=== PATIENT | male | born 1980 | race African-American/Black ===

== ENCOUNTER 2017-02-23 15:23 | Emergency (ER) | payer SELFPAY ==
--- NOTE | 2017-02-23 15:35 | ER Document Report ---
ED Medical Screen (RME) - General Stated Complaint: POSSIBLE SPIDER BITE Notes: Patient had red area to the left side of abdomen which he treated himself about 5 weeks ago. Now has another area to right side of abdomen that is red and draining. Patient denies fever. I have greeted and performed a rapid initial assessment of this patient. A comprehensive ED assessment and evaluation of the patient, analysis of test results and completion of the medical decision making process will be conducted by additional ED providers. Physical Exam - Vital signs Vitals: Temp Pulse Resp BP Pulse Ox 99.2 F 87 20 157/81 H 98 02/23/17 15:30 02/23/17 15:30 02/23/17 15:30 02/23/17 15:30 02/23/17 15:30 - Skin Notes: Purulent drainage noted from wound to right side of abdomen. Course - Vital Signs Vital signs: Temp Pulse Resp BP Pulse Ox 99.2 F 87 20 157/81 H 98 02/23/17 15:30 02/23/17 15:30 02/23/17 15:30 02/23/17 15:30 02/23/17 15:30
--- NOTE | 2017-02-23 17:57 | ER Document Report ---
ED General - General Chief Complaint: Abscess Stated Complaint: POSSIBLE SPIDER BITE Mode of Arrival: Ambulatory Information source: Patient Cannot obtain history due to: Uncooperative Notes: 36-year-old male presents with complaints of right abdominal abscess of now 1 week duration. Patient notes he had a similar abscess about 3 weeks ago on the left abdomen. Denies any fevers or chills nausea vomiting or diarrhea TRAVEL OUTSIDE OF THE [place] IN LAST 30 DAYS: No - HPI Onset: Last week Onset/Duration: Persistent Quality of pain: Achy Severity: Mild Pain Level: 1 Associated symptoms: None Exacerbated by: Denies Relieved by: Denies Similar symptoms previously: Yes Recently seen / treated by doctor: No - Related Data Allergies/Adverse Reactions: aspirin Allergy (Verified 02/23/17 15:35) swelling Past Medical History - Social History Smoking Status: Never Smoker Cigarette use (# per day): No Chew tobacco use (# tins/day): No Smoking Education Provided: No Frequency of alcohol use: None Drug Abuse: None Family History: Reviewed & Not Pertinent Patient has suicidal ideation: No Patient has homicidal ideation: No Renal/ Medical History: Denies: Hx Peritoneal Dialysis Surgical Hx: Negative Review of Systems - Review of Systems Notes: REVIEW OF SYSTEMS: CONSTITUTIONAL : Denies fever, chills, or sweats. Denies recent illness. EENT: Denies eye, ear, throat, or mouth pain or symptoms. Denies nasal or sinus congestion or discharge. Denies throat, tongue, or mouth swelling or difficulty swallowing. CARDIOVASCULAR: Denies chest pain. Denies palpitations or racing or irregular heart beat. Denies ankle edema. RESPIRATORY: Denies cough, cold, or chest congestion. Denies shortness of breath, difficulty breathing, or wheezing. GASTROINTESTINAL: Denies abdominal pain or distention. Denies nausea, vomiting , or diarrhea. Denies blood in vomitus, stools, or per rectum. Denies black, tarry stools. Denies constipation. GENITOURINARY: Denies difficulty urinating, painful urination, burning, frequency, blood in urine, or discharge. MUSCULOSKELETAL: Denies back or neck pain or stiffness. Denies joint pain or swelling. SKIN: Admits to abscess HEMATOLOGIC : Denies easy bruising or bleeding. LYMPHATIC: Denies swollen, enlarged glands. NEUROLOGICAL: Denies confusion or altered mental status. Denies passing out or loss of consciousness. Denies dizziness or lightheadedness. Denies headache. Denies weakness or paralysis or loss of use of either side. Denies problems with gait or speech. Denies sensory loss, numbness, or tingling. Denies seizures. PSYCHIATRIC: Denies anxiety or stress. Denies depression, suicidal ideation, or homicidal ideation. ALL OTHER SYSTEMS REVIEWED AND NEGATIVE. Dictation was performed using [employer] voice recognition software PHYSICAL EXAMINATION: GENERAL: Well-appearing, well-nourished and in no acute distress. HEAD: Atraumatic, normocephalic. EYES: Pupils equal round and reactive to light, extraocular movements intact, sclera anicteric, conjunctiva are normal. ENT: Nares patent, oropharynx clear without exudates. Moist mucous membranes. NECK: Normal range of motion, supple without lymphadenopathy LUNGS: Breath sounds clear to auscultation bilaterally and equal. No wheezes rales or rhonchi. HEART: Regular rate and rhythm without murmurs ABDOMEN: Soft, nontender, nondistended abdomen. No guarding, no rebound. No masses appreciated. Musculoskeletal: Normal range of motion, no pitting or edema. No cyanosis. NEUROLOGICAL: Cranial nerves grossly intact. Normal speech, normal gait. Normal sensory, motor exams PSYCH: Normal mood, normal affect. SKIN:8x4 centimeters abscess drainage with fluctuance Physical Exam - Vital signs Vitals: Temp Pulse Resp BP Pulse Ox 99.2 F 87 20 157/81 H 98 02/23/17 15:30 02/23/17 15:30 02/23/17 15:30 02/23/17 15:30 02/23/17 15:30 Course - Re-evaluation Re-evalutation: 02/23/17 17:57 Dr Bello will evaluate patient 02/23/17 19:11 Area was incised and drained large amount pus was removed. Area was packed. Patient will be started on antibiotics given pain control with 48 hour recheck After performing a Medical Screening Examination, I estimate there is LOW risk for OPEN FRACTURE, COMPARTMENT SYNDROME, TENDON RUPTURE, ACUTE NEUROVASCULAR INJURY, or RETAINED FOREIGN BODY, thus I consider the discharge disposition reasonable. Also, there is no evidence or peritonitis, sepsis, or toxicity. The patient and I have discussed the diagnosis and risks, and we agree with discharging home with close follow-up with the understanding that symptoms and presentations can change. We also discussed returning to the Emergency Department immediately if new or worsening symptoms occur. We have discussed the symptoms which are most concerning (e.g., changing or worsening pain, fever , numbness, weakness, cool or painful digits) that necessitate immediate return. - Vital Signs Vital signs: Temp Pulse Resp BP Pulse Ox 99.2 F 87 20 157/81 H 98 02/23/17 15:30 02/23/17 15:30 02/23/17 15:30 02/23/17 15:30 02/23/17 15:30 Procedures - Incision and Drainage Right Upper Abdomen Time completed: 19:10 Type: Complex, Single Anesthetic type: 1% Lidocaine mL's of anesthetic: 15 Blade size: 11 I&D procedure: Shurclens applied, Sterile dressing applied Incision Method: Incision made by scalpel Amount/type of drainage: large amount of thick white pus Discharge - Discharge Clinical Impression: Abscess, abdomen Condition: Stable Disposition: HOME, SELF-CARE Instructions: Abscess ([facility]), Post Incision and Drainage Additional Instructions: Return in 48 hours for recheck. Return immediately if there is any sign of worsening infection Prescriptions: Clindamycin HCl 300 mg PO Q6 #40 capsule Oxycodone HCl/Acetaminophen [Percocet 5-325 mg Tablet] 1 tab PO ASDIR PRN #15 tab PRN Reason: Forms: Elevated Blood Pressure
[2017-02-23] MEDS ORDERED: LIDOCAINE 1% INJ-PF (10 MG/ML) 30 ML SDV INJ ONE (18:33)
[2017-02-23 19:31] VITALS: BP 145/88
== END 2017-02-23 19:29 | disposition home or self-care (01) ==
LOC: ER 15:23
PROC: 0H97XZZ Drainage of Abdomen Skin, External Approach (ICD-10-PCS; principal; 2017-02-23)
DX: L02.211 Cutaneous abscess of abdominal wall (principal); Z88.6 Allergy status to analgesic agent
CPT/HCPCS: 87070; 87075; 87077; 87186; 87205; 99283

== ENCOUNTER 2017-02-25 19:26 | Emergency (ER) | payer SELFPAY ==
[2017-02-25 19:35] VITALS: BP 139/84
--- NOTE | 2017-02-25 20:26 | ER Document Report ---
ED Suture/Wound Recheck - General Chief Complaint: Abscess Recheck Stated Complaint: 48HR CHECK UP Time seen by provider: 20:23 Mode of Arrival: Ambulatory Information source: Patient Notes: 36-year-old male presents to ED for recheck of abscess on his abdomen. Patient was seen on Sunday had an I&D done to an abdominal abscess that was packed with gauze. Patient states he has been tolerating the abscess well. He has antibiotics and narcotics left that he can take when he goes home. TRAVEL OUTSIDE OF THE [place] IN LAST 30 DAYS: No - HPI Previous ED treatment: I&D of abscess Antibiotics given previously: Prescription Quality of pain: Achy Severity: Mild Pain Level: 1 Symptoms since procedure: Drainage Exacerbated by: Denies Relieved by: Denies - Related Data Allergies/Adverse Reactions: aspirin Allergy (Verified 02/25/17 19:31) swelling Past Medical History - General Information source: Patient - Social History Smoking Status: Never Smoker Cigarette use (# per day): No Chew tobacco use (# tins/day): No Smoking Education Provided: No Frequency of alcohol use: None Drug Abuse: None Family History: Reviewed & Not Pertinent Patient has suicidal ideation: No Patient has homicidal ideation: No - Past Medical History Cardiac Medical History: Reports: None Pulmonary Medical History: Reports: None EENT Medical History: Reports: None Neurological Medical History: Reports: None Endocrine Medical History: Reports: None Renal/ Medical History: Reports: None Malignancy Medical History: Reports None GI Medical History: Reports: None Musculoskeltal Medical History: Reports None Skin Medical History: Reports Hx Cellulitis - Abdominal abscess Psychiatric Medical History: Reports: None Traumatic Medical History: Reports: None Infectious Medical History: Reports: None Surgical Hx: Negative Past Surgical History: Reports: None - Immunizations Immunizations up to date: Yes Hx Diphtheria, Pertussis, Tetanus Vaccination: Yes Review of Systems - Review of Systems Constitutional: No symptoms reported EENT: No symptoms reported Cardiovascular: No symptoms reported Respiratory: No symptoms reported Gastrointestinal: Other - (Draining wound on the abdomen Genitourinary: No symptoms reported Male Genitourinary: No symptoms reported Musculoskeletal: No symptoms reported Skin: Other - Abscess that has been I&D and is now a open wound on the abdomen Hematologic/Lymphatic: No symptoms reported Neurological/Psychological: No symptoms reported -: Yes All other systems reviewed and negative Physical Exam - Vital signs Vitals: Temp Pulse Resp BP Pulse Ox 98.4 F 77 18 139/84 H 97 02/25/17 19:32 02/25/17 19:32 02/25/17 19:32 02/25/17 19:32 02/25/17 19:32 Interpretation: Normal - General General appearance: Appears well, Alert - HEENT Head: Normocephalic, Atraumatic Eyes: Normal Pupils: PERRL - Respiratory Respiratory status: No respiratory distress Chest status: Nontender Breath sounds: Normal Chest palpation: Normal - Cardiovascular Rhythm: Regular Heart sounds: Normal auscultation Murmur: No - Abdominal Inspection: Normal, Wounds - Open wound that was I&D'd on Sunday and packed. Distension: No distension Bowel sounds: Normal Tenderness: Nontender Organomegaly: No organomegaly - Back Back: Normal, Nontender - Extremities General upper extremity: Normal inspection, Nontender, Normal color, Normal ROM , Normal temperature General lower extremity: Normal inspection, Nontender, Normal color, Normal ROM , Normal temperature, Normal weight bearing. No: Nilam's sign - Neurological Neuro grossly intact: Yes Cognition: Normal Orientation: AAOx4 [place] Coma Scale Eye Opening: Spontaneous [place] Coma Scale Verbal: Oriented [place] Coma Scale Motor: Obeys Commands [place] Coma Scale Total: 15 Speech: Normal Motor strength normal: LUE, RUE, LLE, RLE Sensory: Normal - Psychological Associated symptoms: Normal affect, Normal mood - Skin Skin Temperature: Warm Skin Moisture: Dry Skin Color: Normal Skin irregularity: Abscess - Open wound that was I&D'd on Sunday and packed. Course - Re-evaluation Re-evalutation: 02/25/17 20:35 Open wound that was I&D'd on Sunday and packed. Packing was removed. The opening is still rather large to just put a dressing on it. Site was repacked with quarter inch iodoform and covered with a clean dressing. Patient instructed to return in 48 hours to have site rechecked and possibly repacked. Patient has antibiotics and pain medicine at home from his previous visit and states he does not need any more. - Vital Signs Vital signs: Temp Pulse Resp BP Pulse Ox 98.4 F 77 18 139/84 H 97 02/25/17 19:32 02/25/17 19:32 02/25/17 19:32 02/25/17 19:32 02/25/17 19:32 Discharge - Discharge Clinical Impression: Abscess re-check Condition: Stable Disposition: HOME, SELF-CARE Additional Instructions: ABSCESS: You have an abscess (boil). This a pus-forming infection, usually due to staph. Some boils may be left to drain on their own, but most require lancing. From the time the tender lump first appears, it may be three or four days before the abscess is ready to ninfa. Local heat and rest help at this stage of treatment. An antibiotic may prevent spread of the infection. Once the abscess is opened, packing may be placed into it. This is done so pus is not sealed inside by premature closure of the cavity. The packing will be removed at your follow-up visit or you may be advised to remove it yourself at home. Sometimes this packing must be replaced a few times during healing. The wound will heal with surprisingly little scar. Depending on the size and location of an abscess, healing can take one to four weeks. You may shower and wash the area around the incision site two or three times a day. Antibiotics may be prescribed, but are usually not necessary after an abscess has been drained. If you develop fever, chills, worsening pain, or increasing swelling in the area, call the doctor or return immediately. The packing was removed from your abscess today. The wound was irrigated with normal saline and then repacked with iodoform gauze. If your wound continues to drain and another for another 48 hours return to the emergency room if there is no drainage on your dressing you can remove the packing and continue covering it with plain gauze and tape until the incision has healed. Continue taking her antibiotics as ordered as well as your pain medication. Please change the dressing to your abdomen at least twice a day but do not remove the packing until 48 hours. If you need to return in 48 hours please bring packing with you that I have given you at that is still in the bottle. FOLLOW-UP CARE: Most simple abscesses will not require a follow up visit. If you had packing placed in the abscess, remove it as instructed by the physician. If you have been referred to a physician for follow-up care, call the physicians office for an appointment as you were instructed or within the next two days. If you experience worsening or a significant change in your symptoms, return to the Emergency Department at any time for re-evaluation. Forms: Elevated Blood Pressure
== END 2017-02-25 20:39 | disposition home or self-care (01) ==
LOC: ER 19:26
DX: L02.211 Cutaneous abscess of abdominal wall (principal)
CPT/HCPCS: 99282

== ENCOUNTER 2017-02-28 19:25 | Emergency (ER) | payer SELFPAY ==
[2017-02-28 19:45] VITALS: BP 141/86
--- NOTE | 2017-02-28 20:35 | ER Document Report ---
ED Suture/Wound Recheck - General Chief Complaint: Abscess Recheck Stated Complaint: ABSCESS RECHECK Time seen by provider: 20:25 Mode of Arrival: Ambulatory Information source: Patient Notes: 36-year-old male presents to ED for recheck on abscess to his right abdomen. He was seen on Sunday and an Sunday. His I&D was done on Sunday and is repacking was done on Sunday. The abscess is much improved since Sunday. He is taking his antibiotics and pain medicine as prescribed. He states that the pain is considerably less than it was on Sunday. Was able to tolerate repacking very well today. TRAVEL OUTSIDE OF THE [place] IN LAST 30 DAYS: No - HPI Previous ED treatment: I&D of abscess Antibiotics given previously: Prescription Quality of pain: Achy Severity: Mild Pain Level: 1 Symptoms since procedure: Pain - States he has some pain when movement no pain with packing today Exacerbated by: Movement Relieved by: Denies - Related Data Allergies/Adverse Reactions: aspirin Allergy (Verified 02/28/17 19:39) swelling Home Medications: Current Home Medications No Home Medications 02/28/17 [History] Past Medical History - General Information source: Patient - Social History Smoking Status: Never Smoker Cigarette use (# per day): No Chew tobacco use (# tins/day): No Smoking Education Provided: No Frequency of alcohol use: None Drug Abuse: None Family History: Reviewed & Not Pertinent Patient has suicidal ideation: No Patient has homicidal ideation: No - Past Medical History Cardiac Medical History: Reports: Hx Hypertension Pulmonary Medical History: Reports: None EENT Medical History: Reports: None Neurological Medical History: Reports: None Endocrine Medical History: Reports: None Renal/ Medical History: Reports: None Malignancy Medical History: Reports None GI Medical History: Reports: None Skin Medical History: Reports Hx Cellulitis - Abdominal abscess Psychiatric Medical History: Reports: None Traumatic Medical History: Reports: None Infectious Medical History: Reports: None Surgical Hx: Negative Past Surgical History: Reports: None - Immunizations Immunizations up to date: Yes Hx Diphtheria, Pertussis, Tetanus Vaccination: Yes Review of Systems - Review of Systems Constitutional: No symptoms reported EENT: No symptoms reported Cardiovascular: No symptoms reported Respiratory: No symptoms reported Gastrointestinal: No symptoms reported Genitourinary: No symptoms reported Male Genitourinary: No symptoms reported Musculoskeletal: No symptoms reported Skin: Other - Rechecked abscess. No signs of inflammation or infection. Site much improved from last examination. Hematologic/Lymphatic: No symptoms reported Neurological/Psychological: No symptoms reported -: Yes All other systems reviewed and negative Physical Exam - Vital signs Vitals: Temp Pulse Resp BP Pulse Ox 98.5 F 87 12 141/86 H 97 02/28/17 19:40 02/28/17 19:40 02/28/17 19:40 02/28/17 19:40 02/28/17 19:40 Interpretation: Normal - General General appearance: Appears well, Alert - HEENT Head: Normocephalic, Atraumatic Eyes: Normal Pupils: PERRL - Respiratory Respiratory status: No respiratory distress Chest status: Nontender Breath sounds: Normal Chest palpation: Normal - Cardiovascular Rhythm: Regular Heart sounds: Normal auscultation Murmur: No - Abdominal Inspection: Wounds - Healing abscess still open repacked today patient to remove packing in 48 hours and leave out at that time. Distension: No distension Bowel sounds: Normal Tenderness: Tender - Healing abscess Organomegaly: No organomegaly - Back Back: Normal, Nontender - Extremities General upper extremity: Normal inspection, Nontender, Normal color, Normal ROM , Normal temperature General lower extremity: Normal inspection, Nontender, Normal color, Normal ROM , Normal temperature, Normal weight bearing. No: Nilam's sign - Neurological Neuro grossly intact: Yes Cognition: Normal Orientation: AAOx4 [place] Coma Scale Eye Opening: Spontaneous [place] Coma Scale Verbal: Oriented [place] Coma Scale Motor: Obeys Commands [place] Coma Scale Total: 15 Speech: Normal Motor strength normal: LUE, RUE, LLE, RLE Sensory: Normal - Psychological Associated symptoms: Normal affect, Normal mood - Skin Skin Temperature: Warm Skin Moisture: Dry Skin Color: Normal Course - Re-evaluation Re-evalutation: 02/28/17 20:59 Abscess to right abdomen irrigated with saline repacked with iodoform gauze and redressed with 4 x 4's and paper tape. Patient instructed to remove packing in 48 hours and continue dressing with 4 x 4 after cleaning at least twice a day. Patient to return to the emergency room or primary care doctor for any increase in drainage any increase in redness any fevers or any signs or symptoms of infection. Patient can return to work tomorrow. Patient instructed to please complete all antibiotics. Patient also instructed to please follow-up with primary doctor for his high blood pressure. List of family physicians in the area given to the patient. - Vital Signs Vital signs: Temp Pulse Resp BP Pulse Ox 98.5 F 87 12 141/86 H 97 02/28/17 19:40 02/28/17 19:40 02/28/17 19:40 02/28/17 19:40 02/28/17 19:40 Discharge - Discharge Clinical Impression: Abscess re-check Condition: Stable Disposition: HOME, SELF-CARE Instructions: Family Physicians / Practices Additional Instructions: ABSCESS: You have an abscess (boil). This a pus-forming infection, usually due to staph. Some boils may be left to drain on their own, but most require lancing. From the time the tender lump first appears, it may be three or four days before the abscess is ready to ninfa. Local heat and rest help at this stage of treatment. An antibiotic may prevent spread of the infection. Once the abscess is opened, packing may be placed into it. This is done so pus is not sealed inside by premature closure of the cavity. The packing will be removed at your follow-up visit or you may be advised to remove it yourself at home. Sometimes this packing must be replaced a few times during healing. The wound will heal with surprisingly little scar. Depending on the size and location of an abscess, healing can take one to four weeks. You may shower and wash the area around the incision site two or three times a day. Antibiotics may be prescribed, but are usually not necessary after an abscess has been drained. If you develop fever, chills, worsening pain, or increasing swelling in the area, call the doctor or return immediately. Continue your antibiotics as prescribed. Remove your packing in 48 hours. Continue to shower as instructed. You will not need to return to the ED and last you have increasing drainage fever redness or increase in symptoms. Or any signs and symptoms of infection. FOLLOW-UP CARE: Most simple abscesses will not require a follow up visit. If you had packing placed in the abscess, remove it as instructed by the physician. If you have been referred to a physician for follow-up care, call the physicians office for an appointment as you were instructed or within the next two days. If you experience worsening or a significant change in your symptoms, return to the Emergency Department at any time for re-evaluation. Forms: Elevated Blood Pressure, Return to Work
== END 2017-02-28 21:06 | disposition home or self-care (01) ==
LOC: ER 19:25
DX: L02.211 Cutaneous abscess of abdominal wall (principal); I10 Essential (primary) hypertension; Z88.6 Allergy status to analgesic agent
CPT/HCPCS: 99282